=== PATIENT | female | born 1970 | race Caucasian/White ===

== ENCOUNTER → 2023-12-15 | Outpatient (CLI) | payer MEDICARE ==
[2023-12-15 15:28] LABS: ALBUMIN 3.9 G/DL (3.2-5.2); ALKALINE PHOSPHATASE 98 U/L (46-116); ALT/SGPT 21 U/L (7.0-40); AST/SGOT 21 U/L (<34); BILIRUBIN,TOTAL 0.2 MG/DL (0.3-1.2); BLOOD UREA NITROGEN 15 MG/DL (9-23); CALCIUM LEVEL 9.5 MG/DL (8.5-10.1); CARBON DIOXIDE LEVEL 28 MMOL/L (20-31); CHLORIDE LEVEL 109 MMOL/L (98-107); CHOLESTEROL LEVEL 145 MG/DL (<200); CREATININE FOR GFR 0.71 MG/DL (0.55-1.30); GLOMERULAR FILTRATION RATE > 60.0 (>51); GLUCOSE, FASTING 97 MG/DL (60-100); HDL CHOLESTEROL 53.6 MG/DL (>40); LDL CHOLESTEROL 81.2 MG/DL (<100); NON-HDL-C 91.4 MG/DL; POTASSIUM SERUM 4.8 MMOL/L (3.5-5.1); SODIUM LEVEL 141 MMOL/L (136-145); TOTAL PROTEIN 7.1 G/DL (5.7-8.2); TRIGLYCERIDES LEVEL 51 MG/DL (<150)
[2023-12-15 15:31] LABS: THYROID STIMULATING HORMONE 0.918 uIU/ML (0.55-4.78); TOTAL 25(OH) VITAMIN D 23.9 NG/ML (20.0-100.0)
[2023-12-15 15:32] LABS: FREE T4 1.09 NG/DL (0.89-1.76)
[2023-12-15 15:34] LABS: BASO # 0.1 10^3/uL (0.0-0.2); BASO % 0.5 % (0.0-1.0); EOS # 0.1 10^3/uL (0.0-0.5); EOS % 0.8 % (0.0-3.0); HEMATOCRIT 45.3 % (36.0-47.0); HEMOGLOBIN 14.9 g/dl (12.0-15.5); LYMPH # 2.2 10^3/uL (1.5-5.0); LYMPH % 16.8 % (24.0-44.0); MEAN CORPUSCULAR HEMOGLOBIN 30.7 pg (27.0-33.0); MEAN CORPUSCULAR HGB CONC 32.9 g/dl (32.0-36.5); MEAN CORPUSCULAR VOLUME 93.4 fl (80.0-96.0); MONO # 0.6 10^3/uL (0.0-0.8); MONO % 4.4 % (2.0-8.0); NEUTROPHILS # 9.9 10^3/uL (1.5-8.5); NEUTROPHILS % 77.2 % (36.0-66.0); PLATELET COUNT, AUTOMATED 334 10^3/uL (150-450); RED BLOOD COUNT 4.85 10^6/uL (4.00-5.40); WHITE BLOOD COUNT 12.8 10^3/uL (4.0-10.0)
[2023-12-15 15:45] LABS: HEMOGLOBIN A1c 5.4 % (4.0-6.0)
== END ==
LOC: M PLALAB 10:01
PROVIDERS: ATTEND Nurse Practitioner Family
DX: E55.9 Vitamin D deficiency, unspecified (principal); Z13.220 Encounter for screening for lipoid disorders; Z13.1 Encounter for screening for diabetes mellitus; I10 Essential (primary) hypertension; G40.909 Epilepsy, unspecified, not intractable, without status epilepticus; Z79.899 Other long term (current) drug therapy

== ENCOUNTER → 2023-12-17 | Outpatient (CLI) | payer MEDICARE | LOC: M WHC 11:11 | PROVIDERS: ATTEND Nurse Practitioner Family | DX: Z12.31 Encounter for screening mammogram for malignant neoplasm of breast (principal) ==

== ENCOUNTER → 2024-03-15 | Outpatient (CLI) | payer MEDICARE ==
[2024-03-15 18:14] LABS: BASO # 0.1 10^3/uL (0.0-0.2); BASO % 0.7 % (0.0-1.0); EOS # 0.1 10^3/uL (0.0-0.5); EOS % 1.6 % (0.0-3.0); HEMATOCRIT 37.5 % (36.0-47.0); HEMOGLOBIN 12.8 g/dl (12.0-15.5); LYMPH # 2.3 10^3/uL (1.5-5.0); MEAN CORPUSCULAR HEMOGLOBIN 31.2 pg (27.0-33.0); MEAN CORPUSCULAR HGB CONC 34.1 g/dl (32.0-36.5); MEAN CORPUSCULAR VOLUME 91.5 fl (80.0-96.0); MONO # 0.7 10^3/uL (0.0-0.8); MONO % 8.1 % (2.0-8.0); NEUTROPHILS # 5.2 10^3/uL (1.5-8.5); NEUTROPHILS % 62.4 % (36.0-66.0); PLATELET COUNT, AUTOMATED 333 10^3/uL (150-450); WHITE BLOOD COUNT 8.4 10^3/uL (4.0-10.0)
[2024-03-15 18:15] LABS: ALBUMIN 3.6 G/DL (3.2-5.2); ALKALINE PHOSPHATASE 88 U/L (46-116); ALT/SGPT 26 U/L (7.0-40); AST/SGOT 30 U/L (<34); BILIRUBIN,TOTAL 0.3 MG/DL (0.3-1.2); BLOOD UREA NITROGEN 7 MG/DL (9-23); CALCIUM LEVEL 9.1 MG/DL (8.5-10.1); CARBON DIOXIDE LEVEL 30 MMOL/L (20-31); CHLORIDE LEVEL 103 MMOL/L (98-107); CREATININE FOR GFR 0.71 MG/DL (0.55-1.30); GLOMERULAR FILTRATION RATE > 60.0 (>51); GLUCOSE, FASTING 80 MG/DL (60-100); POTASSIUM SERUM 4.3 MMOL/L (3.5-5.1); SODIUM LEVEL 138 MMOL/L (136-145)
[2024-03-15 18:29] LABS: ERYTHROCYTE SEDIMENTATION RATE 44 mm/hr (0-30)
== END ==
LOC: M PLAIMG 14:37
PROVIDERS: ATTEND Physician Assistant Medical
DX: R06.02 Shortness of breath (principal); J06.9 Acute upper respiratory infection, unspecified; Z91.09 Other allergy status, other than to drugs and biological substances

== ENCOUNTER → 2024-06-24 | Outpatient (REF) | payer MEDICARE | LOC: M WUC 18:50 | PROVIDERS: ATTEND Physician Assistant | DX: R30.0 Dysuria (principal) ==

== ENCOUNTER → 2024-07-17 | Outpatient (CLI) | payer MEDICARE ==
[2024-07-17 15:47] LABS: HEMATOCRIT 37.7 % (36.0-47.0); HEMOGLOBIN 12.8 g/dl (12.0-15.5); MEAN CORPUSCULAR HEMOGLOBIN 31.3 pg (27.0-33.0); MEAN CORPUSCULAR VOLUME 92.2 fl (80.0-96.0); PLATELET COUNT, AUTOMATED 340 10^3/uL (150-450); RED BLOOD COUNT 4.09 10^6/uL (4.00-5.40)
[2024-07-17 16:19] LABS: IRON (FE) 58 UG/DL (50-170); PERCENT SATURATION 15.8 % (13.2-45.0); TOTAL IRON BINDING CAPACITY 366 UG/DL (250-425)
[2024-07-17 16:20] LABS: ALKALINE PHOSPHATASE 83 U/L (46-116); ALT/SGPT 58 U/L (7.0-40); AST/SGOT 38 U/L (<34); BILIRUBIN,TOTAL 0.3 MG/DL (0.3-1.2); BLOOD UREA NITROGEN 14 MG/DL (9-23); CALCIUM LEVEL 9.7 MG/DL (8.5-10.1); CARBON DIOXIDE LEVEL 30 MMOL/L (20-31); CHLORIDE LEVEL 106 MMOL/L (98-107); CREATININE FOR GFR 0.74 MG/DL (0.55-1.30); GLOMERULAR FILTRATION RATE > 60.0 (>51); GLUCOSE, FASTING 92 MG/DL (60-100); POTASSIUM SERUM 4.5 MMOL/L (3.5-5.1); SODIUM LEVEL 139 MMOL/L (136-145); TOTAL PROTEIN 7.4 G/DL (5.7-8.2)
[2024-07-17 16:21] LABS: ATYPICAL LYMPH 7 % (0-5); EOSINOPHILS 1 % (0-3); LYMPHOCYTES 37 % (16-44); MONOCYTES 4 % (0-5); NEUTROPHILS 51 % (28-66); PLATELET ESTIMATE NORMAL (NORMAL)
[2024-07-17 16:22] LABS: FREE T4 1.18 NG/DL (0.89-1.76); THYROID STIMULATING HORMONE 1.505 uIU/ML (0.55-4.78)
[2024-07-18 06:56] LABS: WHITE BLOOD COUNT 8.6 10^3/uL (4.0-10.0)
== END ==
LOC: M LAB 15:19
PROVIDERS: ATTEND Physician Assistant
DX: R23.3 Spontaneous ecchymoses (principal); R53.83 Other fatigue

== ENCOUNTER 2024-08-08 11:57 | Emergency (ER) | payer MEDICARE ==
[~2024-08-08] VITALS: Ht 165.1 cm; Wt 81.1 kg
[2024-08-08] MEDS ORDERED: PRED20TA PO (12:08)
[2024-08-08] MEDS ORDERED: BUSP30TA PO (12:08)
[2024-08-08] MEDS ORDERED: DOXY100T27 PO (12:08)
[2024-08-08 12:44] LABS: HEMATOCRIT 39.7 % (36.0-47.0); HEMOGLOBIN 13.7 g/dl (12.0-15.5); MEAN CORPUSCULAR HEMOGLOBIN 31.9 pg (27.0-33.0); MEAN CORPUSCULAR HGB CONC 34.5 g/dl (32.0-36.5); MEAN CORPUSCULAR VOLUME 92.3 fl (80.0-96.0); PLATELET COUNT, AUTOMATED 358 10^3/uL (150-450); WHITE BLOOD COUNT 15.5 10^3/uL (4.0-10.0)
[2024-08-08 13:16] LABS: CPK CREATINE PHOSPHOKINASE 66 U/L (34-145)
[2024-08-08 13:18] LABS: CK-MB VALUE MASS 1.4 NG/ML (<3.6); MB/CK RELATIVE INDEX 2.12 (< OR =4)
[2024-08-08 13:21] LABS: LIPASE 30 U/L (12-53)
[2024-08-08 13:23] LABS: ALBUMIN 3.7 G/DL (3.2-5.2); ALKALINE PHOSPHATASE 98 U/L (46-116); ALT/SGPT 36 U/L (7.0-40); AST/SGOT 13 U/L (<34); BILIRUBIN,DIRECT 0.2 MG/DL (<0.4); BILIRUBIN,TOTAL 0.5 MG/DL (0.3-1.2); BLOOD UREA NITROGEN 14 MG/DL (9-23); CALCIUM LEVEL 9.6 MG/DL (8.5-10.1); CARBON DIOXIDE LEVEL 30 MMOL/L (20-31); CHLORIDE LEVEL 103 MMOL/L (98-107); CREATININE FOR GFR 0.67 MG/DL (0.55-1.30); GLOMERULAR FILTRATION RATE > 60.0 (>51); GLUCOSE, FASTING 82 MG/DL (60-100); POTASSIUM SERUM 3.7 MMOL/L (3.5-5.1); SODIUM LEVEL 140 MMOL/L (136-145); TOTAL PROTEIN 7.7 G/DL (5.7-8.2)
[2024-08-08] MEDS ORDERED: ISOVUE-370 76% 100ML VIAL As Ordered ONE (13:25)
[2024-08-08] MEDS: ASPIRIN 81MG CHEW TABLET PO ONE (13:52)
[2024-08-08] MEDS: MORPHINE 4 MG/ML 1ML VIAL IV ONE (13:53)
[2024-08-08] MEDS: IPRATROPIUM 0.5MG/ALBUTEROL 2.5MG INH SOL UD 3ML (DUONEB) NEB ONE (13:57)
[2024-08-08 13:59] LABS: LYMPHOCYTES 32 % (16-44); MONOCYTES 9 % (0-5); NEUTROPHILS 59 % (28-66)
[2024-08-08 14:00] LABS: PLATELET ESTIMATE NORMAL (NORMAL)
[2024-08-08 14:07] LABS: CK-MB VALUE MASS 1.1 NG/ML (<3.6); CPK CREATINE PHOSPHOKINASE 71 U/L (34-145); MB/CK RELATIVE INDEX 1.54 (< OR =4)
[2024-08-08] MEDS: AZITHROMYCIN 250MG TABLET PO ONE (14:50)
[2024-08-08] MEDS: cefTRIAXone SOD 2 GM in D5W MINI-BAG PLUS 50 ML IV ONE (14:51)
[2024-08-08] MEDS: NS 1,000 ML IV SCH (14:56)
[2024-08-08] MEDS ORDERED: VENL75CA47 PO (15:59)
[2024-08-08] MEDS ORDERED: ABIL1INJ2 IM (15:59)
[2024-08-08] MEDS ORDERED: QUET1TAB17 PO (15:59)
[2024-08-08] MEDS ORDERED: CLONI1TA PO (15:59)
[2024-08-08] MEDS ORDERED: CLON0.5T2 PO (15:59)
[2024-08-08] MEDS ORDERED: HOME MED LIST COMPLETE! XX SCH (16:00)
[2024-08-08] MEDS ORDERED: AMOX875T2 PO (16:18)
[2024-08-08] MEDS ORDERED: LIDO5CRE6 TOP (16:19)
[2024-08-08 16:30] VITALS: BP 128/101; TEMP 97.8; O2SAT 96
== END 2024-08-08 16:56 | disposition home or self-care (01) ==
LOC: M ED 11:57
DX: J18.9 Pneumonia, unspecified organism (principal); A41.9 Sepsis, unspecified organism; E11.9 Type 2 diabetes mellitus without complications; E78.5 Hyperlipidemia, unspecified; F31.9 Bipolar disorder, unspecified; F41.9 Anxiety disorder, unspecified; F19.10 Other psychoactive substance abuse, uncomplicated; F17.200 Nicotine dependence, unspecified, uncomplicated; Z79.2 Long term (current) use of antibiotics; Z79.899 Other long term (current) drug therapy; Z79.52 Long term (current) use of systemic steroids
CPT/HCPCS: 71045; 71275; 74177; 80047; 80048; 80076; 81001; 82550; 82553; 83605; 83690; 84484; 85025; 87040; 93005; 93041; 94760; 96365; 96366; 96375; 99285; J0696; Q9967

== ENCOUNTER 2024-09-05 13:29 | Emergency (ER) | payer MEDICARE, MEDICAID ==
[~2024-09-05] VITALS: Ht 165.1 cm; Wt 82.5 kg
[~2024-09-05 13:29] MED LIST: ABIL1INJ2 IM; AMOX875T2 PO; BUSP30TA PO; CLON0.5T2 PO; CLONI1TA PO; DOXY100T27 PO; LIDO5CRE6 TOP; PRED20TA PO; QUET1TAB17 PO; VENL75CA47 PO
[2024-09-05 15:22] VITALS: BP 135/84; TEMP 97.8; O2SAT 96
[2024-09-05] MEDS ORDERED: CEPH500C PO (17:57)
== END 2024-09-05 18:05 | disposition home or self-care (01) ==
LOC: M ED 13:29
DX: S60.415A Abrasion of left ring finger, initial encounter (principal); W49.04XA Ring or other jewelry causing external constriction, initial encounter; E11.9 Type 2 diabetes mellitus without complications; E78.5 Hyperlipidemia, unspecified; F19.10 Other psychoactive substance abuse, uncomplicated; F17.200 Nicotine dependence, unspecified, uncomplicated; Z87.820 Personal history of traumatic brain injury; Z79.2 Long term (current) use of antibiotics; Z79.899 Other long term (current) drug therapy; Z79.52 Long term (current) use of systemic steroids; Y92.009 Unspecified place in unspecified non-institutional (private) residence as the place of occurrence of the external cause; Y93.89 Activity, other specified; Y99.9 Unspecified external cause status

== ENCOUNTER → 2024-10-05 | Outpatient (CLI) | payer MEDICARE, MEDICAID ==
[~2024-10-05] MED LIST changes: +CEPH500C PO
[2024-10-05 14:43] LABS: BASO # 0.1 10^3/uL (0.0-0.2); BASO % 0.8 % (0.0-1.0); EOS # 0.1 10^3/uL (0.0-0.5); EOS % 0.6 % (0.0-3.0); HEMATOCRIT 42.9 % (36.0-47.0); HEMOGLOBIN 14.4 g/dl (12.0-15.5); LYMPH # 2.5 10^3/uL (1.5-5.0); LYMPH % 26.8 % (24.0-44.0); MEAN CORPUSCULAR HEMOGLOBIN 31.4 pg (27.0-33.0); MEAN CORPUSCULAR HGB CONC 33.6 g/dl (32.0-36.5); MEAN CORPUSCULAR VOLUME 93.5 fl (80.0-96.0); MONO # 0.6 10^3/uL (0.0-0.8); NEUTROPHILS # 6.2 10^3/uL (1.5-8.5); NEUTROPHILS % 65.7 % (36.0-66.0); PLATELET COUNT, AUTOMATED 368 10^3/uL (150-450); RED BLOOD COUNT 4.59 10^6/uL (4.00-5.40); WHITE BLOOD COUNT 9.5 10^3/uL (4.0-10.0)
[2024-10-05 14:45] LABS: ALBUMIN 4.2 G/DL (3.2-5.2); ALKALINE PHOSPHATASE 91 U/L (35-104); ALT/SGPT 20 U/L (7.0-40); AST/SGOT 19 U/L (<34); BILIRUBIN,TOTAL 0.3 MG/DL (0.3-1.2); BLOOD UREA NITROGEN 14 MG/DL (9-23); CALCIUM LEVEL 10.4 MG/DL (8.5-10.1); CARBON DIOXIDE LEVEL 28 MMOL/L (20-31); CHLORIDE LEVEL 106 MMOL/L (98-107); CHOLESTEROL LEVEL 170 MG/DL (<200); CHOLESTEROL RISK RATIO 2.75 (<5); CREATININE FOR GFR 0.67 MG/DL (0.55-1.30); GLOMERULAR FILTRATION RATE > 60.0 (>51); GLUCOSE, FASTING 104 MG/DL (60-100); HDL CHOLESTEROL 61.7 MG/DL (>40); LDL CHOLESTEROL 97.1 MG/DL (<100); NON-HDL-C 108.3 MG/DL; POTASSIUM SERUM 4.6 MMOL/L (3.5-5.1); SODIUM LEVEL 142 MMOL/L (136-145); TOTAL PROTEIN 7.8 G/DL (5.7-8.2); TRIGLYCERIDES LEVEL 56 MG/DL (<150)
== END ==
LOC: M PLALAB 10:10
PROVIDERS: ATTEND Nurse Practitioner Family
DX: I10 Essential (primary) hypertension (principal); E55.9 Vitamin D deficiency, unspecified; G40.909 Epilepsy, unspecified, not intractable, without status epilepticus; Z13.220 Encounter for screening for lipoid disorders

== ENCOUNTER 2024-12-19 13:55 | Emergency (ER) | payer MEDICARE, MEDICAID ==
[~2024-12-19] VITALS: Ht 165.1 cm; Wt 82.1 kg
[2024-12-19 13:58] VITALS: BP 128/74; TEMP 97.4; O2SAT 98
[2024-12-19] MEDS ORDERED: ACET-907 PO (14:04)
[2024-12-19] MEDS ORDERED: OSEL75CA PO ×2 (16:44→16:57)
[2024-12-19] MEDS ORDERED: VENTAER INH ×2 (16:44→16:57)
== END 2024-12-19 17:07 | disposition home or self-care (01) ==
LOC: M ED 13:55
DX: J09.X2 Influenza due to identified novel influenza A virus with other respiratory manifestations (principal); I10 Essential (primary) hypertension; J45.909 Unspecified asthma, uncomplicated; Z79.52 Long term (current) use of systemic steroids; Z79.1 Long term (current) use of non-steroidal anti-inflammatories (NSAID); Z79.899 Other long term (current) drug therapy

== ENCOUNTER → 2024-12-27 | Outpatient (CLI) | payer MEDICARE, MEDICAID ==
[~2024-12-27] MED LIST changes: +ACET-907 PO; +OSEL75CA PO; +VENTAER INH
== END ==
LOC: M WUC 11:16
PROVIDERS: ATTEND Student in an Organized Health Care Education/Training Program
DX: R06.02 Shortness of breath (principal)

== ENCOUNTER → 2025-02-14 | Outpatient (CLI) | payer MEDICARE, MEDICAID ==
[2025-02-14 15:48] LABS: BASO # 0.1 10^3/uL (0.0-0.2); EOS # 0.2 10^3/uL (0.0-0.5); HEMATOCRIT 42.5 % (36.0-47.0); HEMOGLOBIN 14.2 g/dl (12.0-15.5); LYMPH # 3.4 10^3/uL (1.5-5.0); LYMPH % 43.7 % (24.0-44.0); MEAN CORPUSCULAR HEMOGLOBIN 31.4 pg (27.0-33.0); MEAN CORPUSCULAR HGB CONC 33.4 g/dl (32.0-36.5); MONO # 0.7 10^3/uL (0.0-0.8); MONO % 8.5 % (2.0-8.0); NEUTROPHILS # 3.4 10^3/uL (1.5-8.5); NEUTROPHILS % 44.7 % (36.0-66.0); PLATELET COUNT, AUTOMATED 342 10^3/uL (150-450); RED BLOOD COUNT 4.52 10^6/uL (4.00-5.40); WHITE BLOOD COUNT 7.7 10^3/uL (4.0-10.0)
[2025-02-14 16:20] LABS: ALBUMIN 4.1 G/DL (3.2-5.2); ALKALINE PHOSPHATASE 84 U/L (35-104); ALT/SGPT 18 U/L (7.0-40); AST/SGOT 16 U/L (<34); BILIRUBIN,TOTAL 0.4 MG/DL (0.3-1.2); BLOOD UREA NITROGEN 10 MG/DL (9-23); CALCIUM LEVEL 9.9 MG/DL (8.5-10.1); CARBON DIOXIDE LEVEL 32 MMOL/L (20-31); CHLORIDE LEVEL 106 MMOL/L (98-107); CREATININE FOR GFR 0.69 MG/DL (0.55-1.30); GLOMERULAR FILTRATION RATE > 60.0 (>51); GLUCOSE, FASTING 48 MG/DL (60-100); POTASSIUM SERUM 4.9 MMOL/L (3.5-5.1); SODIUM LEVEL 143 MMOL/L (136-145); TOTAL PROTEIN 7.8 G/DL (5.7-8.2)
== END ==
LOC: M PLALAB 13:30
PROVIDERS: ATTEND Nurse Practitioner Family
DX: I10 Essential (primary) hypertension (principal); G40.909 Epilepsy, unspecified, not intractable, without status epilepticus

== ENCOUNTER 2025-05-30 11:32 | Emergency (ER) | payer MEDICARE, MEDICAID ==
[~2025-05-30] VITALS: Ht 165.1 cm; Wt 84.4 kg
[~2025-05-30 11:32] MED LIST changes: +CLON0.5T2; +LEVE500T5; +TELM1TAB33
[2025-05-30] MEDS: LIDOCAINE 5% PATCH TD ONE (15:10)
[2025-05-30] MEDS: KETOROLAC 30 MG/ML 1 ML VIAL IM ONE (15:10)
[2025-05-30] MEDS ORDERED: METH-1164 PO (16:50)
[2025-05-30] MEDS ORDERED: NAPR-837 PO (16:50)
[2025-05-30 16:52] VITALS: BP 130/82; TEMP 96.4; O2SAT 99
== END 2025-05-30 17:10 | disposition home or self-care (01) ==
LOC: M ED 11:32
DX: M54.31 Sciatica, right side (principal); F31.9 Bipolar disorder, unspecified; E11.9 Type 2 diabetes mellitus without complications; F19.11 Other psychoactive substance abuse, in remission; F17.200 Nicotine dependence, unspecified, uncomplicated; Z79.1 Long term (current) use of non-steroidal anti-inflammatories (NSAID); Z79.52 Long term (current) use of systemic steroids; Z79.899 Other long term (current) drug therapy
CPT/HCPCS: 96372; 99283; J1100; J1885

== ENCOUNTER 2025-06-12 17:24 | Emergency (ER) | payer MEDICARE, MEDICAID ==
[~2025-06-12] VITALS: Ht 165.1 cm; Wt 84.3 kg
[~2025-06-12 17:24] MED LIST changes: +METH-1164 PO; +NAPR-837 PO
[2025-06-12 19:26] VITALS: BP 118/74; TEMP 97; O2SAT 98
[2025-06-12] MEDS: KETOROLAC 60 MG/2 ML VIAL IM ONE (20:19)
== END 2025-06-12 21:02 | disposition home or self-care (01) ==
LOC: M ED 17:24
DX: M16.11 Unilateral primary osteoarthritis, right hip (principal); M25.551 Pain in right hip; G40.909 Epilepsy, unspecified, not intractable, without status epilepticus; E78.5 Hyperlipidemia, unspecified; F32.A Depression, unspecified; F19.10 Other psychoactive substance abuse, uncomplicated; F17.200 Nicotine dependence, unspecified, uncomplicated; Z79.52 Long term (current) use of systemic steroids; Z79.1 Long term (current) use of non-steroidal anti-inflammatories (NSAID); Z79.899 Other long term (current) drug therapy; Z96.642 Presence of left artificial hip joint
CPT/HCPCS: 73502; 73552; 73564; 96372; 99283; J1885

== ENCOUNTER → 2025-06-21 | Outpatient (CLI) | payer MEDICARE, MEDICAID ==
[~2025-06-21] MED LIST changes: +ISOVUE-300 61% 100 ML VIAL As Ordered ONE; +LIDOCAINE 1% MDV 20 ML VIAL As Ordered ONE; +methylPREDNISolone SUSP 40 MG/ML 1 ML VIAL As Ordered ONE
== END ==
LOC: M RAD 14:05
PROVIDERS: ATTEND Orthopaedic Surgery
DX: M16.11 Unilateral primary osteoarthritis, right hip (principal)
CPT/HCPCS: 20610; 77002; J0665; J1010; Q9967

== ENCOUNTER 2025-07-02 14:15 | Outpatient (RCR) | payer MEDICARE, MEDICAID ==
[~2025-07-02 14:15] MED LIST changes: -ISOVUE-300 61% 100 ML VIAL As Ordered ONE; -LIDOCAINE 1% MDV 20 ML VIAL As Ordered ONE; -methylPREDNISolone SUSP 40 MG/ML 1 ML VIAL As Ordered ONE
== END 2025-07-15 ==
LOC: M PT 14:15
PROVIDERS: ATTEND Nurse Practitioner Family
DX: M25.551 Pain in right hip (principal); M54.42 Lumbago with sciatica, left side

== ENCOUNTER → 2025-08-21 | Outpatient (CLI) | payer MEDICARE, MEDICAID | LOC: M RAD 15:41 | PROVIDERS: ATTEND Nurse Practitioner Family | DX: M47.26 Other spondylosis with radiculopathy, lumbar region (principal) ==